=== PATIENT | female | born 1955 ===

== ENCOUNTER 2019-03-19 08:05 | Day surgery (SDC) | payer OTHER ==
[~2019-03-19] VITALS: Ht 165.1 cm; Wt 108.2 kg
[~2019-03-19 08:05] MED LIST: ALBU90OI; Armour Thyroid15 MG PO
--- NOTE | 2019-03-19 08:45 | NUR ---
03/19/19 0845 Kalani Lopes History, Chart, Medications and Allergies reviewed before start of procedure. PATIENT CONFIRMS NPO STATUS AND AGREES WITH SCHEDULED PROCEDURE. MONITOR INTACT WITH CONTINUOUS PULSE OXIMETRY AND INTERMITTENT BP. O2 VIA N/C INTACT THROUGHOUT SEDATION/PROCEDURE. 3-LEAD EKG REVIEWED WITH PHYSICIAN PRIOR TO START OF PROCEDURE. PATIENT DETERMINED TO BE ASA APPROPRIATE FOR PROPOFOL SEDATION PRIOR TO START OF PROCEDURE BY DR. TOMAS.
== END 2019-03-19 09:51 | disposition home or self-care (01) ==
LOC: ORSCMMR 08:05 → ORD 11:00 → ORSCMMR 11:00
PROVIDERS: Internal Medicine Gastroenterology
PROC: 0DBM8ZX Excision of Descending Colon, Via Natural or Artificial Opening Endoscopic, Diagnostic (ICD-10-PCS; principal; 2019-03-19 09:00)
DX: Z12.11 Encounter for screening for malignant neoplasm of colon (principal); D12.4 Benign neoplasm of descending colon; J45.909 Unspecified asthma, uncomplicated; E03.9 Hypothyroidism, unspecified; Z87.891 Personal history of nicotine dependence; Z79.899 Other long term (current) drug therapy
CPT/HCPCS: 88305; J2704; J3010; J7120